=== PATIENT | male | born 1935 | race Caucasian/White ===

== ENCOUNTER 2016-10-07 07:43 | Outpatient (CLI) | payer MEDICARE, OTHER ==
--- NOTE | 2016-10-07 13:52 | Diagnostic Imaging Report ---
ADRIANA WEBBER (COMFORT ADVISOR) - OP [facility] [address] [facility].[address] [address] Report Submission Date: Oct 07, 2016 11:55:13 AM CDT Patient Study Name: LYNNE GUADALUPE Date: Oct 07, 2016 8:03:42 AM CDT Modality Type: CR Gender: M Description: SPINE : 35 Institution: [facility] Physician: ADRIANA WEBBER (COMFORT ADVISOR) - OP Examination: Plain film lumbar spine History: Back discomfort after fall Comparison exams: None provided Findings: 3 views of the lumbar spine demonstrate normal height. Anterior and lateral osteophyte formation. Posterior facet degenerative changes. Slight curvature to the right on the anterior/posterior film. Minimal prevertebral vascular calcifications. Impression: Degenerative changes without compression deformity Electronically signed on Oct 07, 2016 11:55:13 AM CDT by: Abraham HOPSON
--- NOTE | 2016-10-07 13:53 | Diagnostic Imaging Report ---
ADRIANA WEBBER (HAT BLOCKING MACHINE OPERATOR) - OP [facility] [address] [facility].[address] [address] Report Submission Date: Oct 07, 2016 11:45:53 AM CDT Patient Study Name: LYNNE GUADALUPE Date: Oct 07, 2016 8:09:25 AM CDT Modality Type: CR Gender: M Description: LOWER EXTREMITY : 35 Institution: [facility] Physician: ADRIANA WEBBER (HAT BLOCKING MACHINE OPERATOR) - OP Examination: Plain film femur History: Leg discomfort after fall Comparison exams: None available Findings: 4 views of the femur demonstrate normal cortical margins. No periosteal thickening. No evidence for fracture line. Hip and knee articular degenerative changes. No soft tissue abnormality. Impression: Articular degenerative changes. No fracture. Electronically signed on Oct 07, 2016 11:45:53 AM CDT by: Abraham HOPSON
--- NOTE | 2016-10-07 13:54 | Diagnostic Imaging Report ---
ADRIANA WEBBER (FIELD TRAINING AGENT) - OP [facility] [address] [facility] [address] [address] Report Submission Date: Oct 07, 2016 11:35:46 AM CDT Patient Study Name: LYNNE GUADALUPE Date: Oct 07, 2016 8:06:20 AM CDT Modality Type: CR Gender: M Description: PELVIS : 35 Institution: [facility] Physician: ADRIANA WEBBER (FIELD TRAINING AGENT) - OP Examination: Plain film hip History: Leg discomfort after fall Comparison exam: None provided Findings: 3 views of the hip demonstrates narrowing of the femoral acetabular joint. Degenerative spurs the acetabulum. No evidence for fracture or dislocation. Superior and inferior pubic rami and iliac wing are within normal limits. Right hip prosthetic device. Impression: Degenerative changes. No fracture Electronically signed on Oct 07, 2016 11:35:46 AM CDT by: Abraham HOPSON
== END 2016-10-07 07:44 ==
LOC: RAD 07:43
PROVIDERS: ATTEND Nurse Practitioner Family
DX: M25.552 Pain in left hip (principal); M54.5 Low back pain; Z91.81 History of falling
CPT/HCPCS: 72100; 73552

== ENCOUNTER 2017-08-01 12:40 | Outpatient (CLI) | payer MEDICARE, OTHER ==
--- NOTE | 2017-08-01 14:59 | Diagnostic Imaging Report ---
ADRIANA WEBBER (BRIAN) - OP [facility] [address] [facility].[address] [address] Report Submission Date: Aug 01, 2017 1:14:14 PM CDT Patient Study Name: LYNNE GUADALUPE Date: Aug 01, 2017 12:47:14 PM CDT Modality Type: DX Gender: M Description: SHOULDER : 35 Institution: [facility] Physician: ADRIANA WEBBER) - OP Examination: Plain film left shoulder History: FALL FROM BED ON 07/29/2017 LANDING ON LT SHOULDER (Hx) Comparison exams: None provided Findings: 3 views of the left shoulder demonstrates osteopenia. Articular degenerative changes. No evidence for fracture or dislocation. Acromioclavicular joint degenerative spurring. No soft tissue abnormality. Impression: Osteopenia and degenerative changes. No fracture. Electronically signed on Aug 01, 2017 1:14:14 PM CDT by: Abraham HOPSON
== END 2017-08-01 12:42 ==
LOC: RAD 12:40
PROVIDERS: ATTEND Nurse Practitioner Family
DX: M25.512 Pain in left shoulder (principal); W19.XXXA Unspecified fall, initial encounter; Y92.9 Unspecified place or not applicable
CPT/HCPCS: 73030